=== PATIENT | female | born 1955 | race Caucasian/White ===

== ENCOUNTER → 2017-12-01 | Outpatient (CLI) | payer MEDICARE, BC, MEDICAID ==
[~2017-12-01] MED LIST: METHACHOLINE KIT (J7674) INH
== END ==
LOC: M CARPUL 12:16
DX: R06.02 Shortness of breath (principal)
CPT/HCPCS: 94070

== ENCOUNTER → 2017-12-21 | Outpatient (REF) | payer MEDICARE, BC ==
[2017-12-24 08:10] LABS: CYCLOSPORINE LABCORP 39 ng/mL (100-400)
== END ==
LOC: M LAB REF 13:27
DX: N39.0 Urinary tract infection, site not specified (principal); Z94.0 Kidney transplant status
CPT/HCPCS: 80158

== ENCOUNTER → 2018-02-26 | Outpatient (CLI) | payer MEDICARE, BC | LOC: M RAD 12:25 | DX: N20.0 Calculus of kidney (principal); Z94.0 Kidney transplant status | CPT/HCPCS: 74176 ==

== ENCOUNTER → 2019-02-18 | Outpatient (REF) | payer MEDICARE, BC | LOC: M LAB REF 13:08 | PROVIDERS: ATTEND Internal Medicine Nephrology | DX: Z94.0 Kidney transplant status (principal); N39.0 Urinary tract infection, site not specified ==

== ENCOUNTER → 2019-02-23 | Outpatient (CLI) | payer MEDICARE, BC ==
--- NOTE | 2019-02-23 11:43 | REP ---
CT of the abdomen and pelvis without IV or bowel contrast for recurrent urinary tract infections: Comparison is 02/26/2018. The patient has bilateral nephrostomies. 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 These changes were present on the prior study. There are least of three nonobstructive calculi in the pelvic kidney measuring up to approximate 3 mm in diameter. This is unchanged. There is no hydronephrosis in the transplanted kidney. 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 This is unchanged. The ureter on the transplanted kidney can be seen entering the urinary bladder anterolaterally on the right, unchanged. There is no hydroureter. There is no ureteral calcification. There are no bladder calculi. The bladder wall is unremarkable. The visualized lung hartley demonstrate atelectasis/partial collapse in the right middle lobe as an interval change. There is an 8 ml pleural-based lung nodule posterolaterally in the right lower lobe on image 37. This area of the pleura was not included on the prior scan. Therefore, it is not known whether this was present previously. As a precaution, I would recommend CT of the chest for follow up to determine if there are any other lung nodules. The unenhanced hepatic parenchyma is unremarkable. There are multiple tiny gallbladder calculi layering dependently in the gallbladder fundus as previously. The pancreas is unremarkable. The spleen is small in size and micronodular with multiple calcifications. This is unchanged. The adrenals and abdominal aorta are unremarkable. The bowel and mesentery are unremarkable. Pelvis: There is a pelvic kidney as described. The uterus and adnexa are unremarkable. There are diverticula in the descending colon and sigmoid colon without diverticulitis. This is unchanged. 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 There are three nonobstructive calculi in the transplanted kidney, unchanged. There is no hydronephrosis or hydroureter. The transplanted kidney. 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 There are no bladder wall polyps or masses. The bladder is otherwise unremarkable. Cholelithiasis. Diverticulosis without diverticulitis. There is a 8 mm pleural-based lung nodule in the right lower lobe as discussed above. I would recommend follow-up chest CT for further evaluation of other lung nodules. This area of the lung was not included on the prior scan. There is no other air significant interval change. Electronically Signed by Aristides Mcallister MD 02/23/2019 11:35 A
== END ==
LOC: M RAD 10:49
PROVIDERS: ATTEND Specialist
DX: N39.0 Urinary tract infection, site not specified (principal); Z94.0 Kidney transplant status; Z93.6 Other artificial openings of urinary tract status; N13.30 Unspecified hydronephrosis; D73.89 Other diseases of spleen; K57.30 Diverticulosis of large intestine without perforation or abscess without bleeding; N20.0 Calculus of kidney; K80.20 Calculus of gallbladder without cholecystitis without obstruction; R91.1 Solitary pulmonary nodule

== ENCOUNTER → 2019-04-26 | Outpatient (CLI) | payer MEDICARE, BC ==
[2019-04-26 15:46] LABS: BASO # 0.1 10^3/uL (0.0-0.2); BASO % 0.7 % (0.0-1.0); EOS % 0.4 % (0.0-3.0); HEMATOCRIT 44.7 % (36.0-47.0); HEMOGLOBIN 13.8 g/dl (12.0-15.5); LYMPH # 1.6 10^3/uL (1.5-5.0); LYMPH % 14.6 % (24.0-44.0); MEAN CORPUSCULAR HEMOGLOBIN 29.1 pg (27.0-33.0); MEAN CORPUSCULAR HGB CONC 30.9 g/dl (32.0-36.5); MEAN CORPUSCULAR VOLUME 94.1 fl (80.0-96.0); MONO # 0.4 10^3/uL (0.0-0.8); MONO % 3.3 % (0.0-5.0); NEUTROPHILS # 8.6 10^3/uL (1.5-8.5); PLATELET COUNT, AUTOMATED 363 10^3/uL (150-450); RED BLOOD COUNT 4.75 10^6/uL (4.00-5.40); WHITE BLOOD COUNT 10.8 10^3/uL (4.0-10.0)
[2019-04-26 16:10] LABS: ERYTHROCYTE SEDIMENTATION RATE 20 mm/hr (0-30)
[2019-04-30 00:07] LABS: ANTI DOUBLE STRAND-DNA AB 81 IU/mL (0-9); ANTINUCLEAR ANTIBODIES DIRECT Positive (Negative); RNP ANTIBODIES 0.3 AI (0.0-0.9); SJOGREN'S ANTI SS-A <0.2 AI (0.0-0.9); SMITH ANTIBODIES <0.2 AI (0.0-0.9)
[2019-04-30 00:08] LABS: SJOGREN'S ANTI SS-B <0.2 AI (0.0-0.9)
== END ==
LOC: M LAB 15:06
PROVIDERS: ATTEND Optometrist
DX: H47.019 Ischemic optic neuropathy, unspecified eye (principal)

== ENCOUNTER → 2019-09-22 | Outpatient (CLI) | payer MEDICARE, BC ==
[~2019-09-22] MED LIST changes: +ACET-683 PO; +ASPI81TA26 PO; +B-122500 PO; +CULTCAP2 PO; +CYCL25CA5 PO; +ESTR1TAB PO; +FLUT44IN INH; +FOLI1TAB11 PO; +GABA-843 PO; +INSUH10VL SC; +LIDOCAINE 1% MDV 20ML VIAL As Ordered ONE; +MAGN400C2 PO; +MEDR1TAB2 PO; -METHACHOLINE KIT (J7674) INH; +METO1TAB7 PO; +MOME50SP2; +MYCO250C PO; +OMEP40CA97 PO; +POTA10TA16 PO; +PRAV80TA2 PO; +PRED5SOL10 PO; +SING5CHW23 PO; +SYNT50TA PO; +VIAC1CHW PO; +VITA-243 PO
[2019-09-22 16:30] VITALS: BP 188/100
--- NOTE | 2019-09-23 12:03 | REP ---
MIDLINE CATHETER INSERTION WITH SITE DORCAS The procedure was performed under the direct supervision of Dr. Ling. The risks and benefits of the procedure were explained to the patient and informed consent was obtained. The right basilic vein was localized using ultrasound guidance. The skin was prepped and draped in a sterile fashion. 1% lidocaine was used as a local anesthetic. Using ultrasound guidance the basilic vein was cannulated and a 0.018 guidewire was inserted. The needle was removed and a 4.5 Italian dilator and peel-away sheath was inserted over the guide wire. A 4.5 Italian single-lumen catheter was left at a length of 16.5 cm. The dilator was removed and the catheter was inserted over the guide wire. The peel-away sheath was removed and the catheter was flushed with heparinized saline as per Hospital protocol. The catheter was affixed to the skin and a sterile dressing was applied. The patient tolerated the procedure well and there were no immediate complications. After the appropriate amount of monitored convalescence the patient was discharged from the department. Electronically Signed by JOSEFINA De Leon 09/23/2019 10:38 A Electronically Signed by Aristides Ling MD 09/23/2019 11:54 A
== END ==
LOC: M IRPRO 15:38
PROVIDERS: ATTEND Internal Medicine
DX: D72.829 Elevated white blood cell count, unspecified (principal); B96.20 Unspecified Escherichia coli [E. coli] as the cause of diseases classified elsewhere
CPT/HCPCS: 36410; 76937; C1751; J1642; J1644

== ENCOUNTER → 2022-10-03 | Outpatient (CLI) | payer MEDICARE, BC ==
[~2022-10-03] MED LIST changes: +ALIR75PE3 SC; +ARTIDRO4 OU; +BENZ200C70 PO; +CINN500C15 PO; +CLON0.2D6 TD; +E-Z-GAS II EFFERVESCENT PACKET (SODIUM BICARB./CITRIC ACID/SIMETHICONE) As Ordered ONE; +E-Z-HD 98% w/w 340GM SUSP BTL As Ordered ONE; +E-Z-PAQUE 96% w/w SUSP 176GM BTL As Ordered ONE; +GABA-282 PO; -GABA-843 PO; -LIDOCAINE 1% MDV 20ML VIAL As Ordered ONE; +LOPE2TAB12 PO; +MUCI1TAB16 PO; +NASO50SP3 NARES; +OMEP40CA4 PO; -OMEP40CA97 PO; +POTA-149 PO; -POTA10TA16 PO; +PRED15SO24 PO; -PRED5SOL10 PO; +PROAAER10 INH; +SYMB16INH INH; +TRES1INJ2 SC; +cranberry PO; +flexeril PO
== END ==
LOC: M RAD 08:14
PROVIDERS: ATTEND Internal Medicine Gastroenterology
DX: R13.10 Dysphagia, unspecified (principal)

== ENCOUNTER → 2023-06-03 | Outpatient (REF) | payer MEDICARE, BC ==
[~2023-06-03] MED LIST changes: -E-Z-GAS II EFFERVESCENT PACKET (SODIUM BICARB./CITRIC ACID/SIMETHICONE) As Ordered ONE; -E-Z-HD 98% w/w 340GM SUSP BTL As Ordered ONE; -E-Z-PAQUE 96% w/w SUSP 176GM BTL As Ordered ONE
== END ==
LOC: M LAB REF 17:35
PROVIDERS: ATTEND Internal Medicine Nephrology
DX: N39.0 Urinary tract infection, site not specified (principal)

== ENCOUNTER → 2023-06-05 | Outpatient (CLI) | payer MEDICARE, BC | LOC: M RAD 10:20 | PROVIDERS: ATTEND Physician Assistant | DX: R22.43 Localized swelling, mass and lump, lower limb, bilateral (principal) ==